=== PATIENT | female | born 1980 | race Caucasian/White ===

== ENCOUNTER 2016-12-10 04:04 | Inpatient (IN) | payer BC ==
[~2016-12-10] VITALS: Ht 162.6 cm; Wt 90.7 kg
[~2016-12-10 04:04] MED LIST: MTR600X PO
[2016-12-10] MEDS ORDERED: PRENTAB26 PO (05:02)
[2016-12-10] MEDS ORDERED: FERR1TAB23 (05:02)
[2016-12-10 05:03] VITALS: Ht 162.6 cm; Wt 90.7 kg
[2016-12-10] MEDS ORDERED: NURSING VERBAL MED ORDER ONE (05:15)
[2016-12-10] MEDS ORDERED: LACTATED RINGER'S 1000ML 1,000 ML IV PRN (05:30)
[2016-12-10] MEDS ORDERED: LACTATED RINGER'S 1000ML 1,000 ML IV SCH ×2 (05:30→12:40)
[2016-12-10 05:40] LABS: HEMATOCRIT 36.7 % (37-47); MEAN CELL VOLUME 84.2 fL (80-100); MEAN CORPUSCULAR HEMOGLOBIN 27.3 pg (25-34); MEAN CORPUSCULAR HGB CONC 32.4 g/dl (32-36); MEAN PLATELET VOLUME 8.6 fL (7.4-10.4); PLATELET COUNT 255 K/uL (130-400); RED BLOOD COUNT 4.36 M/uL (4.2-5.4); WHITE BLOOD COUNT 14.28 K/uL (4.8-10.8)
--- NOTE | 2016-12-10 09:22 | Progress Note ---
Progress Note Date of Service December 10, 2016. Progress Note cervix /-1/vertex T Cat 1 Will continue ambulating
--- NOTE | 2016-12-10 09:37 | HISTORY & PHYSICAL EXAMINATION ---
DATE OF ADMISSION: 12/10/2016 REASON FOR ADMISSION: Spontaneous rupture of membranes at term. HISTORY OF PRESENT ILLNESS: The patient is a 36-year-old female para 1-0-1-1 who currently presents at 39 weeks and 3 days with spontaneous rupture of membranes of clear fluid approximately 2:00 a.m. today. She is currently 4 cm, 80%, -1, vertex. heart tone is category 1 tracing. Her GBS is negative. Her blood type is A positive. PAST MEDICAL HISTORY: Significant for allergic rhinitis, tobacco use disorder, myalgia and history of fatigue. PAST OBSTETRICAL HISTORY: in 2015 without any complications. SOCIAL HISTORY: The patient is a former smoker. She quit about 2-3 years ago. Denies alcohol or drug use. PAST SURGICAL HISTORY: Positive for D\T\C after spontaneous and dental surgery. FAMILY HISTORY: Noncontributory. REVIEW OF SYSTEMS: Negative. MEDICATIONS: Include vitamins and iron. ALLERGIES: No known allergies. PHYSICAL EXAMINATION: HEAD, EYES, EARS, NOSE, AND THROAT: Within normal limits. LUNGS: Clear to auscultation. COR: Regular rate and rhythm. ABDOMEN: Soft, nontender, gravid. heart tone category 1. EXTREMITIES: Within normal limits. No edema or rash. NEUROLOGICALLY: Intact. ASSESSMENT: Term with spontaneous rupture of membranes in early labor. PLAN: We will ambulate, anticipate normal vaginal delivery.
--- NOTE | 2016-12-10 10:50 | Progress Note ---
Progress Note Date of Service December 10, 2016. Progress Note Cervix /-1 T Cat 1
[2016-12-10] MEDS ORDERED: BUTORPHANOL TARTRATE 1 MG/ML VIAL IV PRN (11:00)
[2016-12-10] MEDS ORDERED: OXYTOCIN 30 UNITS/500ML NSS IV ONE ×2 (11:27→13:38)
[2016-12-10] MEDS ORDERED: LANOLIN OINT EXT PRN ×2 (12:45)
[2016-12-10] MEDS ORDERED: DIPHTHERIA/TETANUS/PERTUSSIS 0.5 ML SYR/VIAL IM. ONE (12:45)
[2016-12-10] MEDS ORDERED: OXYCODONE/ACETAMINOPHEN 5-325 TAB PO PRN (12:45)
[2016-12-10] MEDS ORDERED: HYDROCORTISONE ACETATE 25 MG SUPP PR PRN (12:45)
[2016-12-10] MEDS ORDERED: ACETAMINOPHEN 325 MG TAB PO PRN (12:45)
[2016-12-10] MEDS ORDERED: ACETAMINOPHEN/CODEINE 300/30MG TAB PO PRN ×2 (12:45)
[2016-12-10] MEDS ORDERED: BENZOCAINE 20% AER SPR 82.5 GM CAN EXT PRN (12:45)
[2016-12-10] MEDS ORDERED: MEASLES, MUMPS & RUBELLA VIRUS VIAL SQ. ONE (12:45)
[2016-12-10] MEDS ORDERED: SUPERCREAM 0.870 % 15GM JAR EXT PRN (12:45)
[2016-12-10] MEDS ORDERED: MIDAZOLAM HCL 1 MG/ML 2ML VIAL ONE (12:48)
[2016-12-10] MEDS ORDERED: FENTANYL CITRATE INJ 50 MCG/1 ML 2 ML VIAL ONE (12:48)
[2016-12-10] MEDS ORDERED: ONDANSETRON INJ 2 MG/ML 2 ML VIAL IV PRN (13:00)
[2016-12-10] MEDS ORDERED: EpHEDrine SULFATE INJ 50 MG/ML AMP IV PRN (13:00)
[2016-12-10] MEDS ORDERED: CEFAZOLIN IV 2,000 MG in DEXTROSE 5% 50ML 50 ML IV SCH (13:00)
[2016-12-10] MEDS ORDERED: FENTANYL CITRATE INJ 50 MCG/1 ML 2 ML VIAL IV PRN (13:00)
[2016-12-10] MEDS ORDERED: ATROPINE SULFATE 0.1 MG/ML 5ML SYR IV PRN (13:00)
[2016-12-10] MEDS ORDERED: PROMETHAZINE HCL INJ 6.25 MG in SODIUM CHLORIDE 0.9% 50ML 50 ML IV PRN (13:00)
[2016-12-10] MEDS ORDERED: PROPOFOL IV EMULSION 10 MG/ML 20 ML VIAL IV ONE (13:33)
[2016-12-10] MEDS ORDERED: SUCCINYLCHOLINE CHLORIDE 20 MG/ML 10 ML VIAL IV ONE (13:33)
[2016-12-10] MEDS ORDERED: LIDOCAINE 2% 20 MG/ML 5ML SYR ONE (13:33)
[2016-12-10] MEDS ORDERED: ONDANSETRON INJ 2 MG/ML 2 ML VIAL ONE (14:01)
[2016-12-10] MEDS ORDERED: PHENYLEPHRINE 100MCG/ML 5ML SYR ONE (14:01)
--- NOTE | 2016-12-10 14:24 | [facility] Post Operative Brief Note ---
Immediate Operative Summary Operative Date December 10, 2016. Pre-Operative Diagnosis retained placenta Post-Operative Diagnosis same Procedure(s) Performed Manual removal of placenta repair of 1st degree vaginal tear Surgeon Debora Tunneller Surgeon(s) none Estimated Blood Loss 300 ml. Findings retained placenta Fluids (cc crystalloids) LR Specimens Placenta Drains Morales Anesthesia General Complication(s) None Disposition L&D
--- NOTE | 2016-12-10 16:11 | HISTORY & PHYSICAL EXAMINATION ---
DATE OF ADMISSION: 12/10/2016 REASON FOR ADMISSION: Term in labor. HISTORY OF PRESENT ILLNESS: The patient is a 36-year-old female para 3-0-1-3 who presents today at 38 weeks and 2 days in labor. The patient was seen and evaluated by myself and found to be in early labor. Her GBS is negative. She is AB positive. PAST MEDICAL HISTORY: Positive for tobacco use disorder, advanced maternal age and history of delivery. The patient declined taking [place] prior delivery. SOCIAL HISTORY: Current smoker. Denies alcohol or drugs. PAST SURGICAL HISTORY: Past history of colposcopy, removal of ovary and cold-like cone. ALLERGIES: No known allergies. MEDICATIONS: vitamins. REVIEW OF SYSTEMS: Negative. FAMILY HISTORY: Negative. PHYSICAL EXAMINATION: HEENT: Within normal limits. LUNGS: Clear to auscultation. COR: Regular rate and rhythm. ABDOMEN: Soft, gravid. heart tone category 1. EXTREMITIES: Within normal limits. NEUROLOGICALLY: Intact. ASSESSMENT: Term in early labor. PLAN: Anticipate delivery. ELLY
--- NOTE | 2016-12-10 16:11 | HISTORY & PHYSICAL EXAMINATION ---
DATE OF ADMISSION: 12/10/2016 DELIVERY DATE OF DELIVERY: 12/10/2016 HISTORY OF PRESENT ILLNESS: The patient is a 36-year-old female para 2-1-1-3 at 38 weeks and 2 days, admitted in active labor. The patient progressed rapidly followed by a spontaneous vaginal delivery of a viable female. There was a nuchal cord x1 that was tight and was reduced at the time of delivery. The patient pushed 4-5 times delivering a female infant. The cord was cut as soon as the baby was born and Apgars were 3 and 9, baby was floppy and resuscitation efforts for begun, the baby pinked up, there was first degree vaginal tear that was noted upon delivering the placenta, the cord stopped off and the placenta was retained in the cervical canal. Efforts were made to try to deliver the placenta, but this was not possible. There were some bleeding and the patient was brought back to the OR for manual removal of the placenta. Following delivery, the final sponge and instrument count were found to be correct. EBL 300 mL. Mom was taken to the operating room for manual removal of placenta and baby was taken to the nursery.
--- NOTE | 2016-12-10 16:12 | OPERATIVE REPORT ---
DATE OF OPERATION: 12/10/2016 PREOPERATIVE DIAGNOSIS: Retained placenta. POSTOPERATIVE DIAGNOSIS: Same. PROCEDURE PERFORMED: Manual removal of placenta and repair of first degree vaginal tear. SURGEON: Dr. Cazares. BAND CUTTER: None. ESTIMATED BLOOD LOSS: 300 mL. FINDINGS: Retained placenta and a first degree vaginal laceration. FLUIDS: LR. SPECIMEN: Placenta. DRAINS: Morales. ANESTHESIA: General. COMPLICATIONS: None. FINAL DISPOSITION: Labor room. CLINICAL HISTORY: The patient is a 36-year-old female, para 2-1-1-3 at 38 weeks and 2 days who delivered a viable female today and while attempting to remove the placenta, the cord detached while the placenta was in the cervix, cervical canal. The placenta was attempted to be delivered, but no delivery. The patient was brought back to the OR room upstairs in labor and delivery where anesthesia was given for removal of placenta. The patient was given 2 grams of Ancef and a time-out was called prior to the start of the procedure. DESCRIPTION OF PROCEDURE: After satisfactory general anesthesia, the patient was prepped and draped in usual sterile fashion. Morales catheter was inserted. After visualizing the tear, this was noted. The patient had her placenta that was at the internal os. This was grabbed with a gloved hand and removed in its entirety. There was no bleeding post-procedure. After this, the tear was repaired with 3-0 Vicryl suture in a normal fashion. Final sponge, needle and instrument count were found to be correct. EBL total for delivery and removal of placenta was 300 mL. The patient was then placed supine on a stretcher. She was moved to recovery room in stable condition. I attest to the content of the Intraoperative Record and any orders documented therein. Any exceptions are noted below. MTDD
--- NOTE | 2016-12-10 17:08 | Anesthesiology Progress Note ---
Anesthesia Post Op Note Date & Time December 10, 2016 at 17:07 Vital Signs Pain Intensity: 9.0 Notes Mental Status: alert / awake / arousable, participated in evaluation Pt Amnestic to Procedure: Yes Nausea / Vomiting: adequately controlled Pain: adequately controlled Airway Patency, RR, SpO2: stable & adequate BP & HR: stable & adequate Hydration State: stable & adequate Anesthetic Complications: no major complications apparent
[2016-12-10 17:35] VITALS: BP 143/92; PULSE 133; TEMP 36.9
[2016-12-10 20:00] VITALS: BP 137/80; PULSE 102; TEMP 36.6
[2016-12-10] MEDS: DOCUSATE SODIUM 100 MG CAP PO SCH (20:03)
[2016-12-10] MEDS: IBUPROFEN 600 MG TAB PO PRN (20:11)
[2016-12-10 23:50] VITALS: BP 132/80; PULSE 101; TEMP 36.7
[2016-12-11 04:25] VITALS: BP 121/74; PULSE 89; TEMP 36.6
[2016-12-11 06:55] LABS: MEAN CELL VOLUME 85.9 fL (80-100); MEAN CORPUSCULAR HEMOGLOBIN 27.4 pg (25-34); MEAN CORPUSCULAR HGB CONC 31.9 g/dl (32-36); MEAN PLATELET VOLUME 8.3 fL (7.4-10.4); PLATELET COUNT 237 K/uL (130-400); RED BLOOD COUNT 3.61 M/uL (4.2-5.4); WHITE BLOOD COUNT 19.03 K/uL (4.8-10.8)
[2016-12-11] MEDS ORDERED: PRENATAL VITAMIN TAB PO SCH (08:00)
[2016-12-11] MEDS ORDERED: FERROUS SULFATE 325 MG TAB PO SCH (08:00)
[2016-12-11] MEDS: DOCUSATE SODIUM 100 MG CAP PO SCH (08:27)
[2016-12-11] MEDS: IBUPROFEN 600 MG TAB PO PRN ×2 (08:28→12:38)
[2016-12-11 08:30] VITALS: BP 137/81; PULSE 84; TEMP 36.6; O2SAT 97
[2016-12-11] MEDS ORDERED: MTR600X PO (08:52)
--- NOTE | 2016-12-11 08:54 | Discharge Instructions ---
Discharge Instructions Date of Service December 11, 2016. Admission Reason for Admission: LABOR Discharge Discharge Diagnosis / Problem: term pregnacy delivered Discharge Goals Goal(s): Routine recovery after delivery Activity Recommendations Activity Limitations: as noted below Lifting Limitations: gradually increase as tolerated Exercise/Sports Limitations: gradually increase as tolerated May Resume Sexual Activity: after follow-up appointment Shower/Bathe: no limitations Driving or Machine Use: resume 3 days after discharge . Instructions / Follow-Up Instructions / Follow-Up ACTIVITY RECOMMENDATIONS: * Gradual return to full activity over the next 2-3 weeks. * No lifting - nothing heavier than baby over the next 2-3 weeks. * Do not engage in vigorous exercise, sexual activity or sports until cleared by your physician. * Do not drive or operate any motorized equipment until cleared by your physician. * You may shower/bathe daily. BREAST CARE: If you are not breast feeding: * Wear a supportive bra 24 hours a day for one to two weeks. * Avoid stimulating your breasts and nipples as much as possible during the first few weeks after delivery. * When taking a shower, have the warm water hit your back, not breasts. * When your breasts feel full, apply ice packs. Usually three to four times a day helps ease the discomfort. * Take a mild pain medication (Tylenol/Motrin) when you are uncomfortable. If breast feeding: * Use breast milk to lubricate nipples. Lansinoh cream may be used for sore nipples. You do not need to remove cream prior to breast feeding. If using a different brand of cream, check the label for directions regarding removal of cream prior to nursing. * Wear a supportive bra. * If having problems with breasts or breast feeding, call a cost consultant or your health care provider. EPISIOTOMY CARE: After delivery, if you have an episiotomy (stitches), the following steps will ease discomfort and aid healing. * For the first 24 hours after delivery, place ice packs next to your episiotomy to help reduce swelling. * After the first 24 hour-period, sitz baths, either portable or in the tub, are suggested. A shower with a shower arm sprayed over the episiotomy may be comforting. * Mariella care should be done after each voiding and bowel movement. Squirt warm water from a plastic bottle over the perineum (region of the body between the anus and urinary opening) and pat dry. * Use Dermoplast to ease discomfort. Shake container. [place] directly over the episiotomy. * Place a Tucks on a clean sanitary pad next to your episiotomy. OVER THE COUNTER MEDICATION: * For discomfort or pain, you may use Acetaminophen (Tylenol), Ibuprofen (Advil ), or Naproxen (Aleve) following the package directions. * For constipation you may use Colace following the package directions. SPECIAL CARE INSTRUCTIONS: When you are discharged from the hospital, it is important for you to follow the instructions listed below: * During the first week at home, you should be able to care for yourself and your baby. In addition, the usual light household activities are encouraged. * Limit your activities to the way you feel. Do not try to clean the house or move furniture. Be sensible. * If you actively engage in sports and have done so up until the time of your delivery, you may resume these activities as soon as you feel able. This may take up to one month or even longer. Use good judgment. * Continue to take your vitamins for at least six weeks after the of your baby. * Your diet need not be limited unless you were on a special diet before your delivery. Breast-feeding mothers need around 2500 calories per day and at least 64-80 ounces of fluid per day (8 to 10 glasses). * You should eat foods from the four major food groups. Crash diets or fad diets are to be avoided. Eating lean meats, fresh fruits and vegetables, low-fat dairy products, high fiber foods and a regular exercise program, will help you get back to your pre- weight without putting your health at risk. * Constipation is sometimes a problem after delivery. Take a mild laxative as needed. If breast feeding, Milk of Magnesia is acceptable to use. You may use a suppository or Fleets enema if no episiotomy. * A daily shower or tub bath is suggested. Be sure to thoroughly and gently dry the perineum. * A bloody vaginal discharge will usually continue until around four weeks post . A small amount of bleeding may continue for as long as six weeks. Vaginal discharge changes from the bright red bleeding after delivery to pink then brownish and finally yellowish-pink before becoming white and disappearing. * Bleeding may increase with activity. Your first period may come in 4-8 weeks. If you are breast feeding, your period may be delayed even longer. * Noank (sex) can begin whenever both you and your partner feel comfortable and do not have any form of genital infection. It is recommended that you wait until after your return appointment and discuss with your physician. If you have questions, please talk to your health care practitioner. A condom should be used to prevent infection and . * Foreplay, gentle intercourse and lubrication is very important the first several times to prevent pain. A water-based lubricant such as K-Y jelly or Astroglide may be used. * Tampons may be used six weeks after delivery. * Douching should be avoided for 6 weeks after delivery. * If you have RH negative blood and your baby is RH positive, you will receive RHOGAM by injection prior to discharge. The nurse will give you a card to keep with you that has the date and place that you received RHOGAM after delivery. * During your care, you had a Rubella screen done to check for the presence of rubella antibodies in your blood. If your test was negative, you will receive a Rubella vaccine prior to discharge. This vaccine may cause a fever, soreness at the injection site and flu-like symptoms. If these symptoms persist, notify your health care practitioner. is not advised for three months after a Rubella vaccine. There is a higher chance of having a baby with defects if conceived within three months of getting the vaccine. * If you were discharged 24 hours from delivery or before 48 hours: Visiting nurses will come to your home 48 hours after discharge to assess you and your baby. The visiting nurse will meet with you while you are in the hospital to arrange a time and get directions to your home. * Verbalizes understanding of car seat law as reviewed with patient nursing. * Car Seat hand-out given and reviewed with patient by nursing. * Shaken baby information reviewed with patient by nursing. Call you doctor if: * Heavy bleeding (saturating several pads an hour) or passing clots the size of your fist. * A fever >101 degrees F (38.3 degrees C) on two occasions four hours apart and/or chills. * Unusual pain in the pelvic or vaginal areas. * "Baby Blues" lasting longer than two weeks. If you have any questions or concerns, call your health care practitioner at . FOLLOW-UP VISIT: * Please call the office at to schedule a 6 week examination. It is important you keep this appointment. * It is important for you to make arrangements for either yearly or twice yearly check-ups thereafter. Current Hospital Diet Patient's current hospital diet: Regular OB Diet Discharge Diet Recommended Diet: Regular OB Diet Procedures Procedures Performed: 1. Manual removal of the placenta Pending Studies Studies pending at discharge: no Medical Emergencies . Who to Call and When: Medical Emergencies: If at any time you feel your situation is an emergency, please call 911 immediately. . Non-Emergent Contact Non-Emergency issues call your: Primary Care Provider . . "Provider Documentation" section prepared by Nelson Cazares. . VTE Core Measure Inpt VTE Proph given/why not?: Treatment not indicated
--- NOTE | 2016-12-11 08:56 | OB/GYN Progress Note ---
[employer] Progress Note Date of Service December 11, 2016. Subjective conversation w/ patient, physical exam Ambulation: ambulating normally Voiding: no voiding problems Passing Gas: Yes Diet Tolerance: Regular Diet Feeding Type: Breast Feeding Objective Vital Signs Date Time Temp Pulse Resp B/P Pulse Ox O2 Delivery O2 Flow Rate FiO2 12/11/16 04:25 36.6 89 20 121/74 12/10/16 23:50 Room Air 12/10/16 23:50 36.7 101 20 132/80 12/10/16 20:00 36.6 102 20 137/80 12/10/16 17:35 36.9 133 18 143/92 Physical Exam General Appearance: NO APPARENT DISTRESS Abdomen: non tender, soft, no organomegaly Fundus: Firm Extremities: non-tender, normal inspection, no pedal edema, no calf tenderness labia swollen but no redness or pain Laboratory Results Last 24 Hours Test 12/11/16 06:35 White Blood Count 19.03 K/uL Red Blood Count 3.61 M/uL Hemoglobin 9.9 g/dL Hematocrit 31.0 % Mean Corpuscular Volume 85.9 fL Mean Corpuscular Hemoglobin 27.4 pg Mean Corpuscular Hemoglobin Concent 31.9 g/dl RDW Standard Deviation 61.7 fL RDW Coefficient of Variation 19.6 % Platelet Count 237 K/uL Mean Platelet Volume 8.3 fL Assessment and Plan Post- Day Number: 1 Continue Routine Care: discharged
[2016-12-11 12:25] VITALS: BP 133/78; PULSE 92; TEMP 36.7
[2016-12-11 12:29] VITALS: BP_DIAS 78; PULSE 92; TEMP 36.7
[2016-12-11] MEDS ORDERED: BISACODYL 5 MG TABEC PO SCH (20:00)
[2016-12-12] MEDS ORDERED: BISACODYL 10 MG SUPP PR PRN (07:00)
== END 2016-12-11 14:05 | disposition home or self-care (01) | DRG 767 ==
LOC: C.LD 04:04 → C.OPB 04:04 → C.LD 05:03 → C.OBG 17:32
PROVIDERS: ADMIT Obstetrics & Gynecology; ATTEND Obstetrics & Gynecology
PROC: 0UQGXZZ Repair Vagina, External Approach (ICD-10-PCS; principal; 2016-12-10 09:00)
PROC: 10D17ZZ Extraction of Products of Conception, Retained, Via Natural or Artificial Opening (ICD-10-PCS; principal; 2016-12-10 09:00)
PROC: 10E0XZZ Delivery of Products of Conception, External Approach (ICD-10-PCS; principal; 2016-12-10 09:00)
DX: O72.0 Third-stage hemorrhage (principal); O71.4 Obstetric high vaginal laceration alone; O69.1XX0 Labor and delivery complicated by cord around neck, with compression, not applicable or unspecified; O69.89X0 Labor and delivery complicated by other cord complications, not applicable or unspecified; O99.334 Smoking (tobacco) complicating childbirth; F17.200 Nicotine dependence, unspecified, uncomplicated; Z37.0 Single live birth; Z3A.39 39 weeks gestation of pregnancy; Z90.721 Acquired absence of ovaries, unilateral